=== PATIENT | female | born 1980 | race Caucasian/White ===

== ENCOUNTER 2016-11-27 13:25 | Day surgery (SDC) | payer OTHER ==
[~2016-11-27 13:25] MED LIST: CEFEPIME 2 GM in SODIUM CHLORIDE 0.9% 50 ML IVPB ONE
[2016-11-27 13:47] VITALS: RESP 18
--- NOTE | 2016-11-27 14:54 | IR ---
PICC LINE PLACEMENT: HISTORY: Infection requiring long-term antibiotic therapy PROCEDURE: Ultrasound and fluoroscopic guidance of PICC line placement. COMPLICATIONS: None ANESTHESIA: 1. 1% Lidocaine locally. FINDINGS/TECHNIQUE: The procedure was explained to the patient. The risks, complications, benefits and alternatives were discussed and any questions were answered. Informed consent was obtained. The patient was placed supine on the fluoroscopic table and prepped and draped in the usual sterile [facility] ion. Utilizing a 21 gauge needle and sonographic and fluoroscopic guidance, access in the vein was achieved and there is placement of a 0.018 guidewire. The vein is patent. A 4-F sheath was placed o brenton the guidewire. The guidewire and dilator were removed and a 4-F. PICC line was placed through th e sheath with the tip at the level of the SVC. The sheath was removed, the catheter was flushed and sutured into position. The patient was stable throughout the procedure and remained stable upon disc harge from the Department of Radiology. The vein puncture was patent under ultrasound. A grimaldo scale image was obtained to document patency of the vein punctured. All elements of the maximal barrier technique were utilized. FLUOROSCOPY TIME: 0.2 minute IMPRESSION: Successful PICC line placement under ultrasound and fluoroscopic guidance.
[2016-11-27 15:25] VITALS: PULSE 74; TEMP 98.2
[2016-11-27 15:26] VITALS: BP 114/72
== END 2016-11-27 15:27 | disposition home or self-care (01) ==
LOC: CATHCVL 13:25
PROVIDERS: ATTEND Radiology Diagnostic Radiology
DX: B99.9 Unspecified infectious disease (principal)
CPT/HCPCS: 81025; 36569; J0692; 76937; 77001

== ENCOUNTER → 2018-08-16 | Outpatient (CLI) | payer MEDICAID ==
--- NOTE | 2018-08-16 10:42 | MM ---
Reason for exam: additional evaluation requested from prior study. Last mammogram was performed 6 years and 4 months ago. History: Family history of breast cancer in aunt at age 79. Breast lifts of both breasts, 2016. Excisional biopsy of the right breast, 2011. Physical Findings: Nurse did not find any significant physical abnormalities on exam. MG Diagnostic Mammo w CAD LISANDRO Bilateral CC and MLO view(s) were taken. Prior study comparison: April 22, 2012, CAD bilateral diagnostic mammogram. March 22, 2011, CAD bilateral diagnostic mammogram. The breast tissue is heterogeneously dense. This may lower the sensitivity of mammography. There is chronic nodularity bilaterally. There is no dominant lesion. No significant new findings when compared with previous films. These results were verbally communicated with the patient and result sheet given to the patient on 08/16/18. ASSESSMENT: Incomplete: need additional imaging evaluation, BI-RAD 0 RECOMMENDATION: Ultrasound of the right breast. Manage patient on a clinical basis.
--- NOTE | 2018-08-16 10:44 | USB ---
Reason for exam: additional evaluation requested from abnormal screening. History: Family history of breast cancer in aunt at age 79. Breast lifts of both breasts, 2016. Excisional biopsy of the right breast, 2011. US Breast RT Right complete breast ultrasound includes all four quadrants, the retroareolar region and axilla. Finding demonstrates a 0.3 x 0.4 x 0.2cm oval, cystic, complex lesion at 5 o'clock, a 0.4 x 0.6 x 0.4cm oval, cystic lesion at 9 o'clock, a 0.5 x 0.4 x 0.2cm cystic lesion at 10 o'clock, duct ectasia at the posterior nipple and a 0.9 x 0.6 x 0.3cm oval, cystic lesion at the posterior nipple. These results were verbally communicated with the patient and result sheet given to the patient on 08/16/18. ASSESSMENT: Benign, BI-RAD 2 RECOMMENDATION: Routine screening mammogram of both breasts at age 41. Manage patient on a clinical basis.
== END | disposition home or self-care (01) ==
LOC: RADMAMWWP 07:42
PROVIDERS: ATTEND Family Medicine
DX: N63.11 Unspecified lump in the right breast, upper outer quadrant (principal)
CPT/HCPCS: 77066

== ENCOUNTER → 2019-10-01 | Outpatient (CLI) | payer OTHER ==
--- NOTE | 2019-10-01 16:50 | ECHOF ---
Referral Reason:R94.31 abnormal EKG MEASUREMENTS -------- HEIGHT: 170.2 cm WEIGHT: 63.5 kg BP: RVIDd: 2.7 cm (< 3.3) IVSd: 0.9 cm (0.6 - 1.1) LVIDd: 4.5 cm (3.9 - 5.3) LVPWd: 1.1 cm (0.6 - 1.1) IVSs: 1.2 cm LVIDs: 3.0 cm LVPWs: 1.4 cm LA Diam: 2.8 cm (2.7 - 3.8) LAESV Index (A-L): 18.95 ml/m Ao Diam: 2.6 cm (2.0 - 3.7) AV Cusp: 2.1 cm (1.5 - 2.6) LA Diam: 3.0 cm (2.7 - 3.8) MV EXCURSION: 20.108 mm (> 18.000) MV EF SLOPE: 119 mm/s (70 - 150) EPSS: 0.5 cm MV E Wilber: 0.61 m/s MV DecT: 216 ms MV A Wilber: 0.58 m/s MV E/A Ratio: 1.05 RAP: 5.00 mmHg RVSP: 21.76 mmHg FINDINGS -------- Sinus rhythm. This was a technically excellent study. LV size, wall thickness and systolic function are normal, with an EF greater than 55%. The left jay tricular size is normal. The right ventricle is normal in size. The left atrium is normal in size. Normal LA size by volume 22+/-6 ml/m2. The right atrial size is normal. The aortic valve is trileaflet, and appears structurally normal. No aortic stenosis or regurgitation. There is trace mitral regurgitation. Mild tricuspid regurgitation present. Right ventricular systolic pressure is normal at < 35 mmHg. There is no evidence of pulmonary hypertension. There is no pulmonic regurgitation present. The aortic root size is normal. There is no pericardial effusion. CONCLUSIONS -------- 1. Sinus rhythm. 2. This was a technically excellent study. 3. LV size, wall thickness and systolic function are normal, with an EF greater than 55%. 4. The left ventricular size is normal. 5. The right ventricle is normal in size. 6. The left atrium is normal in size. 7. Normal LA size by volume 22+/-6 ml/m2. 8. The right atrial size is normal. 9. The aortic valve is trileaflet, and appears structurally normal. No aortic stenosis or regurgitati on. 10. There is trace mitral regurgitation. 11. Mild tricuspid regurgitation present. 12. Right ventricular systolic pressure is normal at < 35 mmHg. 13. There is no evidence of pulmonary hypertension. 14. There is no pulmonic regurgitation present. 15. The aortic root size is normal. 16. There is no pericardial effusion. [employer]GER: Simran Vigil RDCS
== END | disposition home or self-care (01) ==
LOC: RADECHMAIN 08:35
PROVIDERS: ATTEND Family Medicine
DX: I07.1 Rheumatic tricuspid insufficiency (principal)
CPT/HCPCS: 93306

== ENCOUNTER 2020-10-01 06:40 | Day surgery (SDC) | payer OTHER ==
[2020-09-29 14:54] VITALS: BMI 22.7
--- NOTE | 2020-09-30 15:39 | P.HPOB ---
History of Present Illness H&P Date: 09/30/20 Chief Complaint: Menorrhagia Maria L is a 31-year-old female who has very heavy vaginal bleeding. The bleeding is heavy and is been heavy for several months. She also passes large clots. She is interested in a permanent solution for her bleeding issues as her had a vasectomy and she does not want to go on hormones. We also discussed Lysteda but she is too concerned about competitions from that medication. She is scheduled for a D&C with hysteroscopy and NovaSure. She is aware that while her had a vasectomy should she have a change of relationship in the future she may need to have a tubal ligation as NovaSure is not designed to be control and can be very dangerous should she get . Past Medical History Additional Past Medical History / Comment(s): occasional palpitations History of Any Multi-Drug Resistant Organisms: None Reported Past Surgical History: Breast Surgery Additional Past Surgical History / Comment(s): artemio mastopexy Past Anesthesia/Blood Transfusion Reactions: No Reported Reaction Smoking Status: Never smoker Medications and Allergies Home Medications Medication Instructions Recorded Confirmed Type Chlorophyll Complex 1 tab PO DAILY 09/29/20 09/29/20 History Allergies Allergy/AdvReac Type Severity Reaction Status Date / Time No Known Allergies Allergy Verified 09/29/20 14:50 Exam Osteopathic Statement: *. No significant issues noted on an osteopathic structural exam other than those noted in the History and Physical/Consult. - OBG Physical Exam Breast: both: normal (no masses) Abdomen: bowel sounds normal, no diffuse tenderness, no bruit present, no guarding noted, no hepatomegaly, no splenomegaly, no mass Vulva: both: normal Vagina: normal moisture, no discharge Cervix: no lesion, no discharge Uterus: normal size, normal contour Adnexa: both: normal Anus/Rectum: normal perianal skin, no rectal mass, no hemorrhoids, heme negative
[~2020-10-01 06:40] MED LIST changes: -CEFEPIME 2 GM in SODIUM CHLORIDE 0.9% 50 ML IVPB ONE; +DEXAMETHASONE SOD PHOSPHATE 4 MG/ML 1 ML VIAL IV ONE; +LACTATED RINGERS 1,000 ML IV SCH; +MIDAZOLAM 2 MG/2 ML VIAL IV PRN; +ONDANSETRON 4 MG/2 ML VIAL IVP ONE; +Pre Op ABX Message 1 EACH MISC MISCELLANE ONE; +SCOPOLAMINE 1.5MG/72HR PATCH TRANSDERM ONE
[2020-10-01] MEDS ORDERED: LIDOCAINE 1% (10MG/ML) FOR IV START INTRADERMA ONE (07:17)
[2020-10-01] MEDS ORDERED: PROPOFOL 10 MG/ML 20 ML VIAL IV ONE (07:36)
[2020-10-01] MEDS ORDERED: LIDOCAINE 1% INJ 10MG/ML (20 ML MDV) ONE (07:36)
[2020-10-01] MEDS ORDERED: KETOROLAC 15 MG/ML 1 ML VIAL ONE (07:36)
[2020-10-01] MEDS ORDERED: MIDAZOLAM 2 MG/2 ML VIAL ONE (07:36)
[2020-10-01] MEDS ORDERED: fentaNYL (PF) 50 MCG/ML 2 ML AMP ONE (07:36)
--- NOTE | 2020-10-01 08:16 | P.OP ---
Date of Procedure: 10/01/20 Preoperative Diagnosis: Menorrhagia Postoperative Diagnosis: Same Procedure(s) Performed: D&C with hysteroscopy and NovaSure Anesthesia: KAMILLE Surgeon: Johnny Norman Estimated Blood Loss (ml): 3 Pathology: other (Uterine curettings) Condition: stable Disposition: same day Operative Findings: Proliferative endometrium noted. Pathology pending Description of Procedure: Limited was taken to the operating suite where a general anesthetic was found be adequate. She was prepped and draped in normal sterile fashion and placed in dorsal lithotomy position. Initially weighted speculum was inserted in the vagina and the anterior lip of cervix identified and grasped with an Allis clamp. Cervix was then sounded to 10 cm with 5 cm cervical length. Cervix was fully dilated and camera was inserted. Proliferative endometrium was noted. Camera was then removed and sharp curettings of the endometrium were obtained placed on Telfa and sent to pathology for evaluation. Once this was concluded NovaSure system was brought out of and with a length of 5 and a width 4.3 it was tested. Once it passes patency test it was enabled and the burn was initiated. At the conclusion of the burn NovaSure system was removed and camera was reinserted with excellent burn noted. Sponge, lap, needle counts were all correct 2. Patient was then taken to the recovery room in stable and satisfactory condition. Plan - Discharge Summary Discharge Rx Participant: No New Discharge Prescriptions: No Action Chlorophyll Complex 1 tab PO DAILY Discharge Medication List Chlorophyll Complex 1 tab PO DAILY 09/29/20 [History] Follow up Appointment(s)/Referral(s): Johnny Norman DO [Doctor of Osteopathic Medicine] - 1 Week Activity/Diet/Wound Care/Special Instructions: Ting, limit stairs and driving, and pelvic rest. If any high temperatures, heavy bleeding, or severe pain call my office. No tub baths for approximately 2 weeks Discharge Disposition: HOME SELF-CARE
[2020-10-01 08:20] VITALS: TEMP 97.8
[2020-10-01] MEDS: HYDROmorphone 0.5 MG/0.5 ML SYRINGE IVP PRN ×2 (08:27→08:37)
[2020-10-01] MEDS ORDERED: LACTATED RINGERS 1,000 ML IV ONE (08:30)
[2020-10-01] MEDS ORDERED: diphenhydrAMINE 50 MG/ML 1 ML VIAL IVP ONE (08:48)
[2020-10-01] MEDS ORDERED: fentaNYL (PF) 50 MCG/ML 2 ML AMP IVP ONE (09:04)
[2020-10-01 09:20] VITALS: RESP 16
[2020-10-01 09:43] VITALS: BP 109/71; PULSE 69
== END 2020-10-01 09:57 | disposition home or self-care (01) ==
LOC: OR 06:40
PROVIDERS: ATTEND Obstetrics & Gynecology
DX: N92.0 Excessive and frequent menstruation with regular cycle (principal); Z79.899 Other long term (current) drug therapy; Z98.890 Other specified postprocedural states
CPT/HCPCS: 81025; 88305; 58563; J2250; J1200; J1100; J2405; J2001; J3010; J1885; J2704; J1170

== ENCOUNTER → 2021-11-09 | Outpatient (CLI) | payer OTHER ==
--- NOTE | 2021-11-09 13:17 | MM ---
Reason for exam: clinical finding. Last mammogram was performed 3 years and 3 months ago. History: Family history of breast cancer in aunt at age 79. Breast lifts of both breasts, 2016. Excisional biopsy of the right breast, 2011. Taking progesterone beginning at age 40. Physical Findings: Nurse Summary: 1.5cm nodule in the right breast at 2 o'clock (nurse romi). MG Diagnostic Mammo w CAD LISANDRO Bilateral CC and MLO view(s) were taken. LM, spot compression CC, and spot compression LM view(s) were taken of the right breast. Prior study comparison: August 16, 2018, bilateral MG diagnostic mammo w CAD LISANDRO. The breast tissue is extremely dense which could obscure a lesion on mammography. Finding: There is a 6 mm round mass located 8 cm from the nipple in the posterior position. Focal asymmetry. These results were verbally communicated with the patient and result sheet given to the patient on 11/09/21. ASSESSMENT: Incomplete: need additional imaging evaluation, BI-RAD 0 RECOMMENDATION: Ultrasound of the right breast.
--- NOTE | 2021-11-09 13:18 | USB ---
Reason for exam: additional evaluation requested from abnormal screening. History: Family history of breast cancer in aunt at age 79. Breast lifts of both breasts, 2016. Excisional biopsy of the right breast, 2011. Taking progesterone beginning at age 40. US Breast Limited RT Right limited breast ultrasound including focal area of concern, retroareolar and axilla demonstrates a 1.3 x 1.0 x 0.7cm solid, hypoechoic lesion at 3 o'clock. These results were verbally communicated with the patient and result sheet given to the patient on 11/09/21. ASSESSMENT: Suspicious, BI-RAD 4 RECOMMENDATION: Ultrasound core biopsy of the right breast. Called Dr. Parada's office with mammographic findings and patient has requesting to follow up with Dr. Bogdan Miles. PRELIMINARY REPORT CALLED AND FAXED TO DR. PARADA ON 11/09/21.
== END | disposition home or self-care (01) ==
LOC: RADMAMWWP 10:49
PROVIDERS: ATTEND Family Medicine
DX: N63.10 Unspecified lump in the right breast, unspecified quadrant (principal); N64.59 Other signs and symptoms in breast; Z80.3 Family history of malignant neoplasm of breast
CPT/HCPCS: 77066